=== PATIENT | female | born 1995 | race Two or more races ===

== ENCOUNTER 2017-02-10 22:13 | Emergency (ER) | payer MEDICAID ==
[~2017-02-10] VITALS: Ht 160 cm; Wt 73.9 kg
[2017-02-10 22:21] VITALS: BP 118/73
[2017-02-10 23:27] LABS: POTASSIUM 3.9 mmol/L (3.5-5.1)
[2017-02-10 23:28] LABS: CALCIUM, SERUM 9.1 mg/dL (8.5-10.1); CREATININE 0.7 mg/dL (0.6-1.3)
[2017-02-10 23:33] LABS: BASOPHILS % (AUTO) 0.3 % (0.0-2.0); EOSINOPHILS # (AUTO) 0.2 /CMM (0.0-0.7); EOSINOPHILS % (AUTO) 1.6 % (0.0-6.0); HEMATOCRIT 41 % (33-45); HEMOGLOBIN 13.6 g/dL (11.5-14.8); LYMPHOCYTES # (AUTO) 2.6 /CMM (0.8-4.8); LYMPHOCYTES % (AUTO) 25.7 % (20.0-44.0); MEAN CORPUSCULAR HEMOGLOBIN 29 PG (26.0-33.0); MEAN CORPUSCULAR HGB CONC 33 g/dl (31.0-36.0); MEAN CORPUSCULAR VOLUME 87 fL (82-100); MONOCYTES # (AUTO) 0.4 /CMM (0.1-1.30); MONOCYTES % (AUTO) 4.4 % (2.0-12.0); NEUTROPHILS # (AUTO) 6.8 /CMM (1.8-8.9); PLATELET COUNT (AUTO) 305 /CMM (150-450); RDW COEFFICIENT OF VARIATION 13.4 (11.5-15.0); RED BLOOD CELL COUNT(AUTO) 4.73 MIL/uL (4.0-5.2)
== END 2017-02-10 23:54 | disposition home or self-care (01) ==
LOC: ER 22:21
DX: R55 Syncope and collapse (principal); F41.9 Anxiety disorder, unspecified; F17.200 Nicotine dependence, unspecified, uncomplicated; F32.9 Major depressive disorder, single episode, unspecified
CPT/HCPCS: 36415; 80048-TC; 84703-TC; 85025-TC; A4606; Z7610

== ENCOUNTER 2020-10-17 16:56 | Emergency (ER) | payer MEDICAID ==
[~2020-10-17] VITALS: Ht 170.2 cm; Wt 74.8 kg
[2020-10-17] MEDS ORDERED: diphenhydrAMINE HCL 50 MG/ML VIAL ONE (17:37)
[2020-10-17] MEDS ORDERED: KETOROLAC TROMETHAMINE INJ 30 MG/ML VIAL ONE (17:38)
[2020-10-17] MEDS ORDERED: METOCLOPRAMIDE HCL 10 MG/2 ML VIAL ONE (17:38)
[2020-10-17] MEDS: IV NS 0.9% 500 ML BAG IV ONE (17:55)
[2020-10-17] MEDS: diphenhydrAMINE HCL 50 MG/ML VIAL IV ONE (17:55)
[2020-10-17] MEDS: METOCLOPRAMIDE HCL 10 MG/2 ML VIAL IV ONE (17:56)
[2020-10-17] MEDS: KETOROLAC TROMETHAMINE INJ 30 MG/ML VIAL IV ONE (17:56)
--- NOTE | 2020-10-17 17:56 | NUR ---
pt rec'd to er c/o anxiety iv started rt ac 20g labs sent to lab pt on monitors. meds given per md order
[2020-10-17 19:06] VITALS: BP 125/87
--- NOTE | 2020-10-17 19:06 | NUR ---
IV removed. Catheter intact and site benign. Pressure and 4x4 applied to site. No bleeding noted.Patient discharged to home in stable condition. Written and verbal after care instructions given. Patient verbalizes understanding of instruction.
== END 2020-10-17 19:07 | disposition home or self-care (01) ==
LOC: ER 17:48
DX: R51.9 Headache, unspecified (principal); R42 Dizziness and giddiness
CPT/HCPCS: 96361; 96374; 96375; 99284; J1200; J1885; J2765; J7030

== ENCOUNTER 2023-01-20 05:31 | Emergency (ER) | payer MEDICAID ==
[~2023-01-20] VITALS: Ht 160 cm; Wt 81.6 kg
--- NOTE | 2023-01-20 06:42 | NUR ---
DR LAW MARTIN AT PT'S BEDSIDE FOR EVAL
--- NOTE | 2023-01-20 06:50 | NUR ---
PT SIGNED WAIVER FORM; FILE KEEPER AWARE
--- NOTE | 2023-01-20 07:20 | NUR ---
Patient AOx4 able to express her own concerns. Pts mother is at bedside. Patient stable with no signs of distress. All safety precautions taken, will continue to monitor throughout shift.
[2023-01-20] MEDS ORDERED: IBUP-1955 PO (08:22)
[2023-01-20 09:20] VITALS: BP 118/70
== END 2023-01-20 09:21 | disposition home or self-care (01) ==
LOC: ER 05:32
DX: R51.9 Headache, unspecified (principal); F41.9 Anxiety disorder, unspecified; F32.A Depression, unspecified; F17.200 Nicotine dependence, unspecified, uncomplicated
CPT/HCPCS: 70450-TC; 84703-TC

== ENCOUNTER 2023-02-24 16:10 | Emergency (ER) | payer MEDICAID ==
[~2023-02-24] VITALS: Ht 160 cm; Wt 80.7 kg
[~2023-02-24 16:10] MED LIST: IBUP-1955 PO
--- NOTE | 2023-02-24 17:05 | NUR ---
C/O LOWER BILATERAL ABDOMINAL PAIN WITH LEFT SIDED CHEST DISCOMFORT SINCE THIS MORNING. DENIES DIARRHEA OR VOMITING.
--- NOTE | 2023-02-24 17:11 | NUR ---
AT BEDSIDE FOR EVAL
[2023-02-24] MEDS ORDERED: ONDANSETRON HCL/PF 4 MG/2 ML VIAL IVP ONE (17:30)
[2023-02-24] MEDS ORDERED: IV NS 0.9% 1,000 ML BAG IV ONE (17:30)
--- NOTE | 2023-02-24 17:44 | NUR ---
IV ACCESS 20G RIGHT AC. BLOOD DRAWN AND SENT TO LAB.
--- NOTE | 2023-02-24 17:46 | NUR ---
XRAY AT BEDSIDE
[2023-02-24] MEDS ORDERED: ONDANSETRON HCL/PF 4 MG/2 ML VIAL ONE (17:49)
--- NOTE | 2023-02-24 18:02 | NUR ---
URINE SAMPLE COLLECTED AND SENT TO LAB.
[2023-02-24 18:23] LABS: CALCIUM, SERUM 9.6 mg/dL (8.5-10.1); CREATININE 0.8 mg/dL (0.6-1.3)
[2023-02-24 18:24] LABS: BASOPHILS % (AUTO) 0.4 % (0.0-2.0); EOSINOPHILS % (AUTO) 0.5 % (0.0-6.0); HEMATOCRIT 40 % (33-45); HEMOGLOBIN 13.4 g/dL (11.5-14.8); LYMPHOCYTES # (AUTO) 1.7 K/uL (0.8-4.8); LYMPHOCYTES % (AUTO) 22.4 % (20.0-44.0); MEAN CORPUSCULAR HGB CONC 33 g/dl (31.0-36.0); MEAN CORPUSCULAR VOLUME 82 fL (82-100); MONOCYTES # (AUTO) 0.2 K/uL (0.1-1.30); MONOCYTES % (AUTO) 3.3 % (2.0-12.0); NEUTROPHILS # (AUTO) 5.5 K/uL (1.8-8.9); NEUTROPHILS % (AUTO) 73.4 % (43.0-81.0); PLATELET COUNT (AUTO) 348 K/uL (150-450); RED BLOOD CELL COUNT(AUTO) 4.92 MIL/uL (4.0-5.2); WHITE BLOOD COUNT (AUTO) 7.5 K/uL (4.3-11.0)
[2023-02-24 18:26] LABS: ALBUMIN 4.4 g/dL (3.4-5.0); BILIRUBIN,DIRECT 0.1 mg/dL (0.0-0.2); BILIRUBIN,TOTAL 0.6 mg/dL (0.2-1.0); TOTAL PROTEIN, SERUM 8.3 g/dL (6.4-8.2)
[2023-02-24 19:11] LABS: BILIRUBIN,URINE NEGATIVE (NEGATIVE); COLOR,URINE YELLOW (YELLOW); LEUKOCYTE ESTERASE ,URINE NEGATIVE (NEGATIVE); NITRITE, URINE NEGATIVE (NEGATIVE); PH,URINE 7.5 (5.0-8.0); PROTEIN,URINE NEGATIVE (NEGATIVE); UGLUCOSE NEGATIVE (NEGATIVE); UROBILINOGEN,URINE 0.2 EU/dL (0.2)
[2023-02-24 19:25] VITALS: BP 132/86
--- NOTE | 2023-02-24 19:25 | NUR ---
Patient discharged to home in stable condition. Written and verbal after care instructions given. Patient verbalizes understanding of instruction. IV removed. Catheter intact and site benign. Pressure and 4x4 applied to site. No bleeding noted.
== END 2023-02-24 19:26 | disposition home or self-care (01) ==
LOC: ER 16:16
DX: F41.9 Anxiety disorder, unspecified (principal); R10.9 Unspecified abdominal pain; R11.0 Nausea; F32.A Depression, unspecified; F17.200 Nicotine dependence, unspecified, uncomplicated
CPT/HCPCS: 99285; 96374; 71045; 96361; 93005; 85025; 80048; 83690; 80076; 84703; 81003; 36415; J2405; J7030 ×2

== ENCOUNTER 2023-03-11 04:06 | Emergency (ER) | payer MEDICAID ==
[~2023-03-11] VITALS: Ht 160 cm; Wt 79.4 kg
[2023-03-11 04:15] VITALS: BP 177/95
--- NOTE | 2023-03-11 04:15 | NUR ---
BIBSELF C/O UTI SYMPTOMS. REQUESTING ANTIBIOTICS
--- NOTE | 2023-03-11 04:18 | NUR ---
URINE COLLECTED SENT TO LAB
[2023-03-11] MEDS ORDERED: NITROFURANTOIN/MONOHYDRATE MACROCRYSTALS 100 MG CAPSULE PO ONE (04:30)
[2023-03-11] MEDS ORDERED: NITROFURANTOIN/MONOHYDRATE MACROCRYSTALS 100 MG CAPSULE ONE (04:34)
[2023-03-11] MEDS ORDERED: NITR100C6 PO (04:52)
--- NOTE | 2023-03-11 04:53 | NUR ---
Patient discharged to home in stable condition. Written and verbal after care instructions given. Patient verbalizes understanding of instruction.
[2023-03-11 05:20] LABS: BILIRUBIN,URINE NEGATIVE (NEGATIVE); COLOR,URINE YELLOW (YELLOW); LEUKOCYTE ESTERASE ,URINE NEGATIVE (NEGATIVE); NITRITE, URINE NEGATIVE (NEGATIVE); PROTEIN,URINE NEGATIVE (NEGATIVE); UGLUCOSE NEGATIVE (NEGATIVE); UROBILINOGEN,URINE 0.2 EU/dL (0.2)
[2023-03-11 05:52] LABS: BACTERIA,URINE Few /HPF (None Seen)
== END 2023-03-11 04:53 | disposition home or self-care (01) ==
LOC: ER 04:08
DX: N39.0 Urinary tract infection, site not specified (principal); F41.9 Anxiety disorder, unspecified; F32.A Depression, unspecified; F17.200 Nicotine dependence, unspecified, uncomplicated; Z79.899 Other long term (current) drug therapy
CPT/HCPCS: 81001; 87086-TC

== ENCOUNTER 2023-03-15 04:46 | Emergency (ER) | payer MEDICAID ==
[~2023-03-15] VITALS: Ht 160 cm; Wt 79.4 kg
[~2023-03-15 04:46] MED LIST changes: +NITR100C6 PO
[2023-03-15 04:55] VITALS: BP 159/89
--- NOTE | 2023-03-15 04:55 | NUR ---
ANDREWSELKen FROM HOME C/O CP "FEELS LIKE MY LUNGS ARE INFLAMED" SINCE 3AM. HX ANXIETY
--- NOTE | 2023-03-15 04:56 | NUR ---
DR. NG AT BEDSIDE
[2023-03-15] MEDS ORDERED: NAPROXEN 250 MG TABLET PO ONE (05:00)
[2023-03-15] MEDS ORDERED: NAPROXEN 250 MG TABLET ONE (05:03)
== END 2023-03-15 05:15 | disposition home or self-care (01) ==
LOC: ER 04:49
DX: R07.89 Other chest pain (principal); F41.9 Anxiety disorder, unspecified; F32.A Depression, unspecified; F17.200 Nicotine dependence, unspecified, uncomplicated; Z87.440 Personal history of urinary (tract) infections

== ENCOUNTER 2023-07-04 15:17 | Emergency (ER) | payer MEDICAID ==
[~2023-07-04] VITALS: Ht 162.6 cm; Wt 78.9 kg
[2023-07-04 16:01] LABS: BASOPHILS # (AUTO) 0.1 K/uL (0.0-0.2); BASOPHILS % (AUTO) 1.4 % (0.0-2.0); EOSINOPHILS # (AUTO) 0.1 K/uL (0.0-0.7); EOSINOPHILS % (AUTO) 1.9 % (0.0-6.0); HEMATOCRIT 35 % (33-45); HEMOGLOBIN 11.4 g/dL (11.5-14.8); LYMPHOCYTES # (AUTO) 2.2 K/uL (0.8-4.8); LYMPHOCYTES % (AUTO) 31.1 % (20.0-44.0); MEAN CORPUSCULAR HEMOGLOBIN 26 PG (26.0-33.0); MEAN CORPUSCULAR HGB CONC 32 g/dl (31.0-36.0); MEAN CORPUSCULAR VOLUME 82 fL (82-100); MONOCYTES # (AUTO) 0.4 K/uL (0.1-1.30); MONOCYTES % (AUTO) 5.5 % (2.0-12.0); NEUTROPHILS # (AUTO) 4.3 K/uL (1.8-8.9); NEUTROPHILS % (AUTO) 60.1 % (43.0-81.0); PLATELET COUNT (AUTO) 331 K/uL (150-450); RED BLOOD CELL COUNT(AUTO) 4.31 MIL/uL (4.0-5.2); WHITE BLOOD COUNT (AUTO) 7.1 K/uL (4.3-11.0)
[2023-07-04 16:21] LABS: CALCIUM, SERUM 8.8 mg/dL (8.5-10.1); CARBON DIOXIDE 26 mmol/L (21-32); CHLORIDE 101 mmol/L (98-107); CREATININE 0.8 mg/dL (0.6-1.3); GLUCOSE 103 mg/dL (74-106); POTASSIUM 4.3 mmol/L (3.5-5.1); SODIUM SERUM 137 mmol/L (136-145); UREA NITROGEN, BLOOD 7 mg/dL (7-18)
[2023-07-04 17:43] VITALS: BP 120/75; TEMP 98.3; O2SAT 100
== END 2023-07-04 17:57 | disposition home or self-care (01) ==
LOC: ER 15:22
DX: R07.89 Other chest pain (principal); F41.9 Anxiety disorder, unspecified; F32.A Depression, unspecified; F17.200 Nicotine dependence, unspecified, uncomplicated; Z79.899 Other long term (current) drug therapy
CPT/HCPCS: 36415; 71045-TC; 80048-TC; 84484-TC; 85025-TC

== ENCOUNTER 2025-05-02 12:53 | Emergency (ER) | payer MEDICAID ==
[~2025-05-02] VITALS: Ht 160 cm; Wt 90.7 kg
[2025-05-02 14:04] LABS: CALCIUM, SERUM 9.1 mg/dL (8.5-10.1); CREATININE 0.7 mg/dL (0.6-1.3); SODIUM SERUM 140.0 mmol/L (136-145); UREA NITROGEN, BLOOD 9.0 mg/dL (7-18)
[2025-05-02 14:08] LABS: APPEARANCE,URINE CLEAR (CLEAR); BLOOD, URINE NEGATIVE Ery/uL (NEGATIVE); LEUKOCYTE ESTERASE ,URINE 1+ (NEGATIVE); NITRITE, URINE NEGATIVE (NEGATIVE); UGLUCOSE NEGATIVE (NEGATIVE)
[2025-05-02 14:10] LABS: ASPARTATE AMINOTRANSFERASE 16.0 U/L (15-37); TOTAL PROTEIN, SERUM 7.8 g/dL (6.4-8.2)
[2025-05-02 14:14] LABS: PREGNANCY TEST URINE QUAL NEGATIVE (NEGATIVE)
[2025-05-02 14:16] LABS: PLATELET COUNT (AUTO) 319 K/uL (150-450); RED BLOOD CELL COUNT(AUTO) 4.65 MIL/uL (4.0-5.2); RED CELL DISTRIBUTION WIDTH 16.9 % (11.5-15.0); WHITE BLOOD COUNT (AUTO) 7.9 K/uL (4.3-11.0)
[2025-05-02 14:32] LABS: ADD URINE CULTURE YES
[2025-05-02] MEDS ORDERED: SULF1TAB48 PO (14:55)
[2025-05-02 15:23] VITALS: BP 141/78; TEMP 98.5; O2SAT 100
== END 2025-05-02 15:17 | disposition home or self-care (01) ==
LOC: ER 13:21
DX: N12 Tubulo-interstitial nephritis, not specified as acute or chronic (principal); F17.200 Nicotine dependence, unspecified, uncomplicated; F41.9 Anxiety disorder, unspecified; F32.A Depression, unspecified; Z87.440 Personal history of urinary (tract) infections; Z79.899 Other long term (current) drug therapy
CPT/HCPCS: 36415; 80048-TC; 80076-TC; 81001; 83690-TC; 84703-TC; 85025-TC; 87086-TC

== ENCOUNTER 2025-08-16 00:52 | Emergency (ER) | payer SELFPAY ==
[~2025-08-16] VITALS: Ht 160 cm; Wt 86.2 kg
[~2025-08-16 00:52] MED LIST changes: +SULF1TAB48 PO
[2025-08-16] MEDS ORDERED: LOPERAMIDE HCL (2 MG CAP) 2 MG CAPSULE ONE (01:56)
[2025-08-16] MEDS ORDERED: ONDANSETRON HCL/PF 4 MG/2 ML VIAL ONE (01:56)
[2025-08-16 02:00] LABS: PLATELET COUNT (AUTO) 329 K/uL (150-450); RED BLOOD CELL COUNT(AUTO) 4.57 MIL/uL (4.0-5.2); RED CELL DISTRIBUTION WIDTH 19.9 % (11.5-15.0); WHITE BLOOD COUNT (AUTO) 9.0 K/uL (4.3-11.0)
[2025-08-16] MEDS: ONDANSETRON HCL/PF 4 MG/2 ML VIAL IVP ONE (02:01)
[2025-08-16] MEDS: IV NS 0.9% 1,000 ML BAG IV ONE (02:01)
[2025-08-16] MEDS: LOPERAMIDE HCL (2 MG CAP) 2 MG CAPSULE PO ONE (02:07)
[2025-08-16 02:08] LABS: CALCIUM, SERUM 8.5 mg/dL (8.5-10.1); CREATININE 0.8 mg/dL (0.6-1.3); SODIUM SERUM 144.0 mmol/L (136-145); UREA NITROGEN, BLOOD 10.0 mg/dL (7-18)
[2025-08-16] MEDS: POTASSIUM CHLORIDE 20 MEQ TAB.PRT.SR PO ONE (02:36)
[2025-08-16] MEDS ORDERED: POTASSIUM CHLORIDE 20 MEQ TAB.PRT.SR PO ONE (02:36)
[2025-08-16 02:57] LABS: APPEARANCE,URINE CLEAR (CLEAR); BLOOD, URINE NEGATIVE Ery/uL (NEGATIVE); LEUKOCYTE ESTERASE ,URINE TRACE (NEGATIVE); NITRITE, URINE NEGATIVE (NEGATIVE); UGLUCOSE NEGATIVE (NEGATIVE)
[2025-08-16 03:04] LABS: PREGNANCY TEST URINE QUAL NEGATIVE (NEGATIVE)
[2025-08-16 03:09] LABS: ADD URINE CULTURE YES; SQUAMOUS EPITHELIAL CELL,UR Few /HPF (None Seen)
[2025-08-16] MEDS ORDERED: ONDA4TAB11 PO (04:04)
[2025-08-16] MEDS ORDERED: LOPE2CAP40 PO (04:04)
[2025-08-16 04:10] VITALS: BP 133/98; TEMP 98.2; O2SAT 99
== END 2025-08-16 04:10 | disposition home or self-care (01) ==
LOC: ER 00:56
DX: F15.10 Other stimulant abuse, uncomplicated (principal); R11.2 Nausea with vomiting, unspecified; R19.7 Diarrhea, unspecified; R20.2 Paresthesia of skin; E87.6 Hypokalemia; F17.200 Nicotine dependence, unspecified, uncomplicated; F41.9 Anxiety disorder, unspecified; Z87.440 Personal history of urinary (tract) infections
CPT/HCPCS: 99284; 96374; 96361; 93005; 85025; 80048; 87086; 84703; 81001; 36415; J2405; J7030